=== PATIENT | male | born 1935 | race Two or more races ===

== ENCOUNTER 2019-07-06 12:22 | Inpatient (IN) | payer OTHER ==
[~2019-07-06] VITALS: Ht 182.9 cm; Wt 69.0 kg
[2019-07-06 13:19] LABS: Basophils # (auto) 0.1 10 ^3/uL (0-0.2); Basophils % (auto) 1.4 % (0.0-2.0); Eosinophils # (auto) 0.1 10 ^3/uL (0-0.8); Eosinophils % (auto) 2.7 % (0.0-7.0); Hematocrit 41.5 % (41.0-53.0); Hemoglobin 14.1 g/dL (13.5-17.5); Lymphocytes # (auto) 1.2 10 ^3/uL (0.4-5.4); Lymphocytes % (auto) 26.1 % (10.0-50.0); Mean Corpuscular Hemoglobin 30.5 pg (28.0-32.0); Mean Corpuscular Hgb Conc. 33.9 g/dL (32.0-36.0); Monocytes # (auto) 0.3 10 ^3/uL (0-1.3); Monocytes % (auto) 7.9 % (0.0-12.0); Neutrophils # (auto) 2.7 10 ^3/uL (1.6-8.6); Neutrophils % (auto) 61.9 % (37.0-80.0); Platelet Count (auto) 190 10^3/uL (140-450); Red Blood Cells 4.61 10^6/uL (4.5-5.90); Red Cell Distribution Width 12.8 % (11.8-14.3); White Blood Cell 4.4 10^3/uL (4.4-10.8)
[2019-07-06 13:31] LABS: Albumin 3.5 g/dL (3.4-5.0); BUN/Creatinine Ratio 18.4; Calcium 8.7 mg/dL (8.5-10.1); Magnesium 2.3 mg/dL (1.6-2.6)
[2019-07-06 13:36] LABS: Total Protein 7.3 g/dL (6.4-8.2)
[2019-07-06] MEDS ORDERED: hydrALAZINE HCL 20 MG/ML VL IV PRN (15:15)
[2019-07-06] MEDS ORDERED: NITROGLYCERIN 0.4 MG SL TAB SL PRN (15:15)
[2019-07-06] MEDS ORDERED: SODIUM CHLORIDE 0.9% 1,000 ML IV ONE (15:15)
[2019-07-06] MEDS ORDERED: ATROPINE SULF 1 MG/10ml SYR IV PRN (15:15)
[2019-07-06] MEDS ORDERED: MORPHINE SULF INJ 2 MG/ML SYRINGE 1ML IV PRN (15:15)
[2019-07-06 15:58] LABS: INR 1.06 (0.9-1.15)
[2019-07-06] MEDS: SODIUM CHLORIDE 0.9% 1,000 ML IV SCH (16:30)
[2019-07-06 20:45] VITALS: BP 149/89
[2019-07-06 22:05] VITALS: BP 149/89
[2019-07-07] VITALS: BP 140/47
[2019-07-07 04:00] VITALS: BP 151/54
[2019-07-07] MEDS: SODIUM CHLORIDE 0.9% 1,000 ML IV SCH ×2 (04:45→17:56)
[2019-07-07 05:36] LABS: Basophils # (auto) 0 10 ^3/uL (0-0.2); Basophils % (auto) 1.1 % (0.0-2.0); Eosinophils # (auto) 0.2 10 ^3/uL (0-0.8); Eosinophils % (auto) 4.2 % (0.0-7.0); Hematocrit 39.8 % (41.0-53.0); Hemoglobin 13.6 g/dL (13.5-17.5); Lymphocytes # (auto) 1.5 10 ^3/uL (0.4-5.4); Lymphocytes % (auto) 33.3 % (10.0-50.0); Mean Corpuscular Hemoglobin 30.9 pg (28.0-32.0); Mean Corpuscular Hgb Conc. 34.1 g/dL (32.0-36.0); Mean Corpuscular Volume 90.7 fL (80.0-100.0); Monocytes # (auto) 0.4 10 ^3/uL (0-1.3); Monocytes % (auto) 9.3 % (0.0-12.0); Neutrophils # (auto) 2.4 10 ^3/uL (1.6-8.6); Neutrophils % (auto) 52.1 % (37.0-80.0); Platelet Count (auto) 176 10^3/uL (140-450); Red Cell Distribution Width 12.6 % (11.8-14.3); White Blood Cell 4.6 10^3/uL (4.4-10.8)
[2019-07-07 05:50] LABS: INR 1.09 (0.9-1.15)
[2019-07-07 06:00] LABS: BUN/Creatinine Ratio 22.1; Calcium 8.4 mg/dL (8.5-10.1); Potassium 3.9 mmol/L (3.5-5.1)
[2019-07-07] MEDS ORDERED: VANCOMYCIN 1GM/250ML 250 ML IV ONE (07:21)
[2019-07-07] MEDS ORDERED: VANCOMYCIN HCL 1000 MG VL ONE (07:23)
[2019-07-07] MEDS ORDERED: fentaNYL CITRATE 100 MCG/2 ML VL ONE (07:23)
[2019-07-07] MEDS ORDERED: MIDAZOLAM HCL 1MG/1ML-2 ML VIAL ONE (07:24)
[2019-07-07] MEDS ORDERED: LIDOCAINE 2%HCL (LOCAL ANESTH.) INJ 20ML MDV ONE ×2 (07:25)
[2019-07-07] MEDS ORDERED: BACITRACIN INJ 50000 UNIT VIAL ONE (07:25)
[2019-07-07] MEDS ORDERED: IODIXANOL 320MG/ML 100ML BTL IV ONE (07:30)
[2019-07-07 09:30] VITALS: BP 128/59
[2019-07-07] MEDS: DOXYCYCLINE 100 MG TAB/CAP PO SCH ×2 (11:30→20:31)
[2019-07-07 11:45] VITALS: BP 124/49
[2019-07-07 15:50] VITALS: BP 138/51
[2019-07-07 20:00] VITALS: BP 142/59
[2019-07-07] MEDS: VANCOMYCIN 1GM/250ML 250 ML IV SCH (20:31)
[2019-07-08] VITALS: BP 138/51
[2019-07-08 04:00] VITALS: BP 152/54
[2019-07-08 05:41] LABS: Basophils # (auto) 0.1 10 ^3/uL (0-0.2); Eosinophils # (auto) 0.2 10 ^3/uL (0-0.8); Eosinophils % (auto) 2.7 % (0.0-7.0); Hematocrit 40.2 % (41.0-53.0); Hemoglobin 13.7 g/dL (13.5-17.5); Lymphocytes # (auto) 1.4 10 ^3/uL (0.4-5.4); Lymphocytes % (auto) 23.2 % (10.0-50.0); Mean Corpuscular Hemoglobin 30.7 pg (28.0-32.0); Mean Corpuscular Hgb Conc. 34.1 g/dL (32.0-36.0); Mean Corpuscular Volume 90.2 fL (80.0-100.0); Monocytes # (auto) 0.6 10 ^3/uL (0-1.3); Monocytes % (auto) 9.3 % (0.0-12.0); Neutrophils # (auto) 3.8 10 ^3/uL (1.6-8.6); Neutrophils % (auto) 63.8 % (37.0-80.0); Nucleated Red Blood Cells % 0.2 %; Platelet Count (auto) 161 10^3/uL (140-450); Red Blood Cells 4.46 10^6/uL (4.5-5.90); Red Cell Distribution Width 12.8 % (11.8-14.3); White Blood Cell 5.9 10^3/uL (4.4-10.8)
[2019-07-08] MEDS: SODIUM CHLORIDE 0.9% 1,000 ML IV SCH ×2 (05:50→08:27)
[2019-07-08 06:08] LABS: BUN/Creatinine Ratio 14.6; Calcium 8.4 mg/dL (8.5-10.1)
[2019-07-08 08:00] VITALS: BP 148/54
[2019-07-08] MEDS: VANCOMYCIN 1GM/250ML 250 ML IV SCH (08:26)
[2019-07-08] MEDS: DOXYCYCLINE 100 MG TAB/CAP PO SCH (09:34)
[2019-07-08 12:00] VITALS: BP 134/47
== END 2019-07-08 15:35 | disposition home or self-care (01) | DRG 244 ==
LOC: EDBD 12:22 → ER 12:22 → TELE 12:23 → DOU IN ICU 20:45
PROVIDERS: ADMIT Internal Medicine; ATTEND Internal Medicine
PROC: 0JH606Z Insertion of Pacemaker, Dual Chamber into Chest Subcutaneous Tissue and Fascia, Open Approach (ICD-10-PCS; principal; 2019-07-07)
PROC: 02HK3JZ Insertion of Pacemaker Lead into Right Ventricle, Percutaneous Approach (ICD-10-PCS; 2019-07-07)
PROC: 02H63JZ Insertion of Pacemaker Lead into Right Atrium, Percutaneous Approach (ICD-10-PCS; 2019-07-07)
DX: R00.1 Bradycardia, unspecified (principal); I10 Essential (primary) hypertension; I25.10 Atherosclerotic heart disease of native coronary artery without angina pectoris; R55 Syncope and collapse; Z83.3 Family history of diabetes mellitus; Z95.0 Presence of cardiac pacemaker; Z87.891 Personal history of nicotine dependence; Z95.1 Presence of aortocoronary bypass graft
CPT/HCPCS: 33208; 36415; 71045; 80048; 80053; 83735; 83880; 84484; 85025; 85610; 86850; 86900; 86901; 87081; 93005; 93306; 96360; 96361; 99152; 99153; C1785; G0378; J2250; Q9967

== ENCOUNTER 2020-10-05 12:37 | Inpatient (IN) | payer OTHER ==
[~2020-10-05] VITALS: Ht 157.5 cm; Wt 74.5 kg
[2020-10-05] MEDS ORDERED: SODIUM CHLORIDE 0.9% 1,000 ML IVB ONE (14:00)
[2020-10-05] MEDS ORDERED: ONDANSETRON HCL 4 MG/2 ML VIAL IV ONE (14:30)
[2020-10-05] MEDS ORDERED: MORPHINE SULF INJ 2 MG/ML SYRINGE 1ML IV ONE (14:30)
[2020-10-05 14:35] LABS: Basophils # (auto) 0.1 10 ^3/uL (0-0.2); Basophils % (auto) 0.8 % (0.0-2.0); Eosinophils # (auto) 0.1 10 ^3/uL (0-0.8); Eosinophils % (auto) 0.9 % (0.0-7.0); Hematocrit 39.4 % (41.0-53.0); Hemoglobin 13.6 g/dL (13.5-17.5); Lymphocytes # (auto) 0.6 10 ^3/uL (0.4-5.4); Lymphocytes % (auto) 8.9 % (10.0-50.0); Mean Corpuscular Hemoglobin 31.1 pg (28.0-32.0); Mean Corpuscular Hgb Conc. 34.6 g/dL (32.0-36.0); Mean Corpuscular Volume 89.9 fL (80.0-100.0); Monocytes # (auto) 0.5 10 ^3/uL (0-1.3); Monocytes % (auto) 7.4 % (0.0-12.0); Neutrophils # (auto) 5.7 10 ^3/uL (1.6-8.6); Nucleated Red Blood Cells % 0.2 %; Platelet Count (auto) 226 10^3/uL (140-450); Red Blood Cells 4.38 10^6/uL (4.5-5.90); Red Cell Distribution Width 12.9 % (11.8-14.3); White Blood Cell 6.9 10^3/uL (4.4-10.8)
[2020-10-05 14:47] LABS: INR 1.07 (0.9-1.15); Partial Thromboplastin Time 27.9 sec (23.0-31.2)
[2020-10-05 14:56] LABS: Albumin 2.8 g/dL (3.4-5.0); Calcium 8.1 mg/dL (8.5-10.1); Magnesium 2.2 mg/dL (1.6-2.6); Potassium 4.3 mmol/L (3.5-5.1)
[2020-10-05 14:57] LABS: BUN/Creatinine Ratio 17.7
[2020-10-05 14:58] LABS: Urine Bacteria NONE SEEN /hpf (None Seen); Urine Blood TRACE /uL (Negative); Urine Specific Gravity 1.013 (1.001-1.035); Urine WBC 1 /hpf (0 - 3)
[2020-10-05 15:03] LABS: Bilirubin, Total 1.3 mg/dL (0.2-1.0); Total Protein 6.6 g/dL (6.4-8.2)
[2020-10-05] MEDS ORDERED: LOVA40TA72 PO (16:13)
[2020-10-05] MEDS ORDERED: TIMO0.5S32 LEFTEYE (16:13)
[2020-10-05] MEDS ORDERED: LOSA-39 PO (16:13)
[2020-10-05] MEDS ORDERED: MET25T PO (16:13)
[2020-10-05] MEDS ORDERED: AMLO-489 PO (16:13)
[2020-10-05] MEDS ORDERED: ONDANSETRON HCL 4 MG/2 ML VIAL IV PRN (17:45)
[2020-10-05] MEDS ORDERED: HYDROcodone-ACET 5/325MG TAB PO PRN (17:45)
[2020-10-05] MEDS: SODIUM CHLORIDE 0.9% 1,000 ML IV SCH (18:09)
[2020-10-05 20:20] VITALS: BP 164/71
[2020-10-05 22:00] VITALS: BP 164/71
[2020-10-05] MEDS: DOCUSATE SOD 100 MG CAP PO SCH (22:12)
[2020-10-06 05:00] VITALS: BP_SYST 131; BP_SYST 185; BP_DIAS 51; BP_DIAS 63
[2020-10-06] MEDS: SODIUM CHLORIDE 0.9% 1,000 ML IV SCH ×2 (07:05→21:29)
[2020-10-06 08:27] VITALS: BP 150/69
[2020-10-06] MEDS: DOCUSATE SOD 100 MG CAP PO SCH ×2 (09:42→21:30)
[2020-10-06] MEDS: MORPHINE SULF INJ 2 MG/ML SYRINGE 1ML IV PRN ×2 (09:52→16:57)
[2020-10-06] MEDS ORDERED: HEPARIN SODIUM (PORCINE) 5000 UNITS/ML 1ML VIAL IV SCH (10:00)
[2020-10-06 12:54] VITALS: BP 148/57
[2020-10-06 17:00] VITALS: BP 163/74
[2020-10-06 22:00] VITALS: BP 158/67
[2020-10-07] VITALS (7 sets, daily range): BP systolic 133–181; BP diastolic 63–111
[2020-10-07] MEDS: MORPHINE SULF INJ 2 MG/ML SYRINGE 1ML IV PRN (05:05)
[2020-10-07 07:14] LABS: Basophils # (auto) 0.1 10 ^3/uL (0-0.2); Basophils % (auto) 1.4 % (0.0-2.0); Eosinophils # (auto) 0.2 10 ^3/uL (0-0.8); Eosinophils % (auto) 4.2 % (0.0-7.0); Hematocrit 37.6 % (41.0-53.0); Lymphocytes # (auto) 0.9 10 ^3/uL (0.4-5.4); Lymphocytes % (auto) 17.3 % (10.0-50.0); Mean Corpuscular Hemoglobin 31.4 pg (28.0-32.0); Mean Corpuscular Hgb Conc. 34.6 g/dL (32.0-36.0); Mean Corpuscular Volume 90.7 fL (80.0-100.0); Monocytes # (auto) 0.5 10 ^3/uL (0-1.3); Monocytes % (auto) 8.8 % (0.0-12.0); Neutrophils # (auto) 3.7 10 ^3/uL (1.6-8.6); Neutrophils % (auto) 68.3 % (37.0-80.0); Nucleated Red Blood Cells % 0.5 %; Platelet Count (auto) 159 10^3/uL (140-450); Red Blood Cells 4.15 10^6/uL (4.5-5.90); Red Cell Distribution Width 12.9 % (11.8-14.3); White Blood Cell 5.4 10^3/uL (4.4-10.8)
[2020-10-07 07:34] LABS: Albumin 2.7 g/dL (3.4-5.0); Calcium 8.4 mg/dL (8.5-10.1); Potassium 4.1 mmol/L (3.5-5.1)
[2020-10-07 07:36] LABS: BUN/Creatinine Ratio 16.1
[2020-10-07 07:48] LABS: Bilirubin, Total 1.4 mg/dL (0.2-1.0); Total Protein 6.3 g/dL (6.4-8.2)
[2020-10-07] MEDS ORDERED: IOHEXOL 350 MG/ML 100ML IJ ONE (08:37)
[2020-10-07] MEDS: SODIUM CHLORIDE 0.9% 1,000 ML IV SCH (09:45)
[2020-10-07] MEDS: ENOXAPARIN SOD 80 MG/0.8ML SYRINGE SC SCH ×2 (10:00→21:46)
[2020-10-07] MEDS: DOCUSATE SOD 100 MG CAP PO SCH ×2 (10:00→21:46)
[2020-10-07] MEDS ORDERED: fentaNYL CITRATE 100 MCG/2 ML VL ONE ×2 (11:27→15:43)
[2020-10-07] MEDS ORDERED: MIDAZOLAM HCL 1MG/1ML-2 ML VIAL ONE ×3 (11:28→16:06)
[2020-10-07] MEDS ORDERED: ceFAZolin 1GM/50ML 100 ML IV ONE (14:51)
[2020-10-07] MEDS ORDERED: BUPIVACAINE 0.25% INJ 50ML VIAL ONE (15:01)
[2020-10-07] MEDS ORDERED: TETRACAINE 1% INJ 2 ML VIAL IJ ONE (15:43)
[2020-10-07] MEDS ORDERED: MORPHINE SULF(PF) 0.5MG/ML 10ML VIAL ONE (15:43)
[2020-10-07] MEDS ORDERED: DexAMETHasone SOD PHOS 10MG/1ML VIAL INJ ONE (16:06)
[2020-10-07] MEDS ORDERED: DexAMETHasone SOD PHOS 10MG/1ML VIAL INJ IV PRN (16:30)
[2020-10-07] MEDS ORDERED: HYDROmorphone HCL 2 MG/ML VL IV PRN (16:30)
[2020-10-07] MEDS ORDERED: NALOXONE HCL 0.4 MG/ML VIAL IV PRN (16:30)
[2020-10-07] MEDS ORDERED: ONDANSETRON HCL 4 MG/2 ML VIAL IV PRN (16:30)
[2020-10-07] MEDS ORDERED: ePHEDrine SULFATE 50 MG/ML AMP IV PRN (16:30)
[2020-10-07] MEDS ORDERED: diphenhdrAMINE HCL 50 MG/1 ML VL IV PRN (16:30)
[2020-10-07] MEDS ORDERED: NALBUPHINE HCL 10 MG/1ml INJECTION SUBCUT ONE (16:30)
[2020-10-07] MEDS ORDERED: LABETALOL HCL 5 MG/ML 4ML SYRINGE IV PRN (16:30)
[2020-10-07] MEDS: LACTATED RINGER'S 1,000 ML IV SCH (17:00)
[2020-10-07] MEDS ORDERED: hydrALAZINE HCL 20 MG/ML VL IV PRN (18:30)
[2020-10-07] MEDS: ceFAZolin 1GM/50ML 50 ML IV SCH ×3 (18:53→23:07)
[2020-10-07] MEDS: SODIUM CHLOR 0.9% PF (SALINE LOCK) 10ML VIAL/SYR IV SCH (21:47)
[2020-10-07] MEDS: METOPROLOL TARTRATE 25 MG TAB PO SCH (21:47)
[2020-10-07] MEDS ORDERED: ATORVASTATIN 20 MG TAB PO SCH (22:00)
[2020-10-08] VITALS (19 sets, daily range): BP systolic 125–160; BP diastolic 45–126
[2020-10-08] MEDS: LACTATED RINGER'S 1,000 ML IV SCH (02:53)
[2020-10-08] MEDS: ceFAZolin 1GM/50ML 50 ML IV SCH (04:54)
[2020-10-08] MEDS: SODIUM CHLOR 0.9% PF (SALINE LOCK) 10ML VIAL/SYR IV SCH ×2 (05:58→14:00)
[2020-10-08 06:10] LABS: Hemoglobin 12.9 g/dL (13.5-17.5)
[2020-10-08 06:34] LABS: Potassium 4.1 mmol/L (3.5-5.1)
[2020-10-08 06:43] LABS: Albumin 2.4 g/dL (3.4-5.0); BUN/Creatinine Ratio 23.5; Bilirubin, Total 1.1 mg/dL (0.2-1.0); Calcium 8.4 mg/dL (8.5-10.1); Total Protein 5.8 g/dL (6.4-8.2)
[2020-10-08] MEDS ORDERED: amLODIPine BESYLATE 5 MG TAB PO SCH (10:00)
[2020-10-08] MEDS ORDERED: TIMOLOL MAL 0.5% OPTH(EYE) SOL 5ML LEFTEYE SCH (10:00)
[2020-10-08] MEDS ORDERED: LOSARTAN POTASSIUM 50 MG TAB PO SCH (10:00)
[2020-10-08] MEDS: ENOXAPARIN SOD 80 MG/0.8ML SYRINGE SC SCH (10:41)
[2020-10-08] MEDS: MORPHINE SULF INJ 2 MG/ML SYRINGE 1ML IV PRN (10:42)
[2020-10-08] MEDS: DOCUSATE SOD 100 MG CAP PO SCH (10:43)
[2020-10-08] MEDS: METOPROLOL TARTRATE 25 MG TAB PO SCH (10:44)
[2020-10-08] MEDS ORDERED: APIX5TAB PO (11:51)
== END 2020-10-08 20:38 | DRG 481 ==
LOC: ER 12:37 → EDBD 12:37 → EDSEX 12:37 → EAST 17:49
PROVIDERS: ADMIT Internal Medicine; ATTEND Internal Medicine
PROC: 06H03DZ Insertion of Intraluminal Device into Inferior Vena Cava, Percutaneous Approach (ICD-10-PCS; 2020-10-07)
PROC: 0QS704Z Reposition Left Upper Femur with Internal Fixation Device, Open Approach (ICD-10-PCS; principal; 2020-10-07 15:44)
DX: S72.002A Fracture of unspecified part of neck of left femur, initial encounter for closed fracture (principal); I82.4Z2 Acute embolism and thrombosis of unspecified deep veins of left distal lower extremity; Z20.822 Contact with and (suspected) exposure to COVID-19; I25.10 Atherosclerotic heart disease of native coronary artery without angina pectoris; I49.5 Sick sinus syndrome; E78.00 Pure hypercholesterolemia, unspecified; W18.39XA Other fall on same level, initial encounter; I10 Essential (primary) hypertension; Z80.3 Family history of malignant neoplasm of breast; Z87.891 Personal history of nicotine dependence; Z95.0 Presence of cardiac pacemaker; Z95.1 Presence of aortocoronary bypass graft; Y93.89 Activity, other specified; Y92.89 Other specified places as the place of occurrence of the external cause; Y99.8 Other external cause status; Z79.899 Other long term (current) drug therapy; Z79.891 Long term (current) use of opiate analgesic; Z79.01 Long term (current) use of anticoagulants
CPT/HCPCS: 36415; 51702; 70450; 71045; 71275; 72125; 72170; 72192; 73502; 76000; 76942; 80053; 81001; 82550; 83735; 84484; 85014; 85018; 85025; 85610; 85730; 86850; 86900; 86901; 87426; 93005; 93306; 93926; 96361; 96374; 96375; 97163; 99152; A4565; G0378; J0690; J1100; J2250; J2405; J3490

== ENCOUNTER 2022-04-12 16:28 | Emergency (ER) | payer OTHER ==
[~2022-04-12] VITALS: Ht 180.3 cm; Wt 70.0 kg
[~2022-04-12 16:28] MED LIST: AMLO-489 PO; APIX5TAB PO; LOSA-39 PO; LOVA40TA72 PO; MET25T PO; TIMO0.5S32 LEFTEYE
[2022-04-12] MEDS ORDERED: cloNIDine HCL 0.1 MG TAB PO ONE (16:45)
[2022-04-12] MEDS ORDERED: HYDROcodone-ACET 5/325MG TAB PO ONE (16:45)
[2022-04-12] MEDS ORDERED: HYDROcodone-ACET 10/325MG TAB PO ONE (22:45)
[2022-04-12] MEDS ORDERED: ONDANSETRON ODT 4 MG TAB PO ONE (22:45)
[2022-04-13] MEDS ORDERED: TETANUS-DIPTH-ACEL PERTUSSIS 0.5ML SYR Tdap IM ONE (01:45)
[2022-04-13] MEDS ORDERED: cefTRIAXone 1GM/50ML D5W 50 ML IV ONE (01:45)
[2022-04-13 03:01] LABS: Basophils # (auto) 0 10 ^3/uL (0-0.2); Basophils % (auto) 0.3 % (0.0-2.0); Eosinophils # (auto) 0 10 ^3/uL (0-0.8); Eosinophils % (auto) 0.3 % (0.0-7.0); Hematocrit 34.4 % (41.0-53.0); Hemoglobin 11.2 g/dL (13.5-17.5); Lymphocytes # (auto) 0.9 10 ^3/uL (0.4-5.4); Lymphocytes % (auto) 18.4 % (10.0-50.0); Mean Corpuscular Hemoglobin 30.1 pg (28.0-32.0); Mean Corpuscular Hgb Conc. 32.5 g/dL (32.0-36.0); Mean Corpuscular Volume 92.6 fL (80.0-100.0); Monocytes # (auto) 0.3 10 ^3/uL (0-1.3); Monocytes % (auto) 5.3 % (0.0-12.0); Neutrophils # (auto) 3.6 10 ^3/uL (1.6-8.6); Neutrophils % (auto) 75.7 % (37.0-80.0); Nucleated Red Blood Cells % 0.1 %; Red Blood Cells 3.71 10^6/uL (4.5-5.90); Red Cell Distribution Width 13.7 % (11.8-14.3); White Blood Cell 4.7 10^3/uL (4.4-10.8)
[2022-04-13 03:17] LABS: INR 1.08 (0.9-1.15)
[2022-04-13 03:21] LABS: Albumin 2.6 g/dL (3.4-5.0); BUN/Creatinine Ratio 26.5; Calcium 8.6 mg/dL (8.5-10.1); Potassium 4.8 mmol/L (3.5-5.1)
[2022-04-13 03:24] LABS: Bilirubin, Total 0.5 mg/dL (0.2-1.0); Total Protein 5.8 g/dL (6.4-8.2)
[2022-04-13 05:58] VITALS: BP 155/52
== END 2022-04-13 03:38 | disposition short-term general hospital (02) ==
LOC: EDBD 16:28 → ER 16:28
DX: S61.412A Laceration without foreign body of left hand, initial encounter (principal); D64.9 Anemia, unspecified; E88.09 Other disorders of plasma-protein metabolism, not elsewhere classified; E87.8 Other disorders of electrolyte and fluid balance, not elsewhere classified; R73.9 Hyperglycemia, unspecified; E86.0 Dehydration; Z20.822 Contact with and (suspected) exposure to COVID-19; W26.8XXA Contact with other sharp object(s), not elsewhere classified, initial encounter; Y93.89 Activity, other specified; Y92.89 Other specified places as the place of occurrence of the external cause; Y99.8 Other external cause status
CPT/HCPCS: 12002; 36415; 73130; 80053; 85025; 85610; 85730; 87426; 90471; 90715; 96365; 99291; J0696; Q0162